=== PATIENT | male | born 1990 | race Caucasian/White ===

== ENCOUNTER 2016-09-17 16:20 | Emergency (ER) | payer BC ==
[2016-09-17 16:40] VITALS: BP 148/67
--- NOTE | 2016-09-17 16:59 | UC ---
HPI Wound/Suture Re-check - HPI Summary HPI Summary: The patient comes in today for: 1. Staple removal from surgical wound of the left forearm: Onset: Fasciotomy done on the 4th of this month. Hawk put in on the 8th with closure. Palliative/provocative: Over working his hand will lead to pain. Quality: No pain at rest. Region: Left forearm. Severity: no pain at rest. Time: Constant. Associated symptoms: Event: He has been living in [facility] for 4 years. He had a heroin overdose and passed out on his left arm. He woke up about 5-6 hours later on his left side. He was on the floor. The left side of his body was numb. He called 911 and went to the hospital. On his way back to the hospital via the ambulance, the sensation came back except for the left forearm. The left forearm was swollen. He had "tests" and diagnosed with left forearm compartment syndrome. He had surgery at that time. He was got a lot of fluid and urinating a lot. He was in the hospital for about 6 days with open wounds for 4 days. And the swelling came down and the wounds were closed 2 days before he left. Sensation in his arm is normal. He does not have a PCP in this area and is not set up with physical therapy. He is planning to be here until further notice. He has a contact with . He does not yet have sponsor. He has not started any meetings. He wants to cut back on his pain medications. He has no PCP at this time. * - History Of Current Complaint Chief Complaint: KAUSHIKkin Stated Complaint: STAPLE REMOVAL LEFT ARM Time Seen by Provider: 09/17/16 16:35 Hx Obtained From: Patient, Family/Customer Service Coordinator - Allergies/Home Medications Allergies/Adverse Reactions: Allergies Allergy/AdvReac Type Severity Reaction Status Date / Time Amoxicillin Allergy Hives Verified 09/17/16 16:27 Home Medications: Home Medications Acetaminophen [Acetaminophen Extra Stren] 1,000 mg PO Q6H PRN 09/17/16 [History Confirmed 09/17/16] PMH/Surg Hx/FS Hx/Imm Hx Previously Healthy: No - IVDU (heroin) - Surgical History Surgical History: Yes Surgery Procedure, Year, and Place: fasciotomy and closure. - Family History Known Family History: Positive: Diabetes Negative: Hypertension - Social History Occupation: Unemployed Lives: With Family Alcohol Use: None Substance Use Type: Heroin Substance Use Comment - Amount & Last Used: last used on 09/06/16 Smoking Status (MU): Heavy Every Day Tobacco Smoker Type: Cigarettes Amount Used/How Often: 1/2 pack daily Review of Systems Constitutional: Negative Skin: Negative Eyes: Negative ENT: Negative Respiratory: Negative Cardiovascular: Negative Gastrointestinal: Negative Genitourinary: Negative All Other Systems Reviewed And Are Negative: Yes Physical Exam Triage Information Reviewed: Yes Appearance: Well-Appearing, No Pain Distress, Well-Nourished Vital Signs: Initial Vital Signs Temp 98.6 F 09/17/16 16:33 Pulse 82 09/17/16 16:33 Resp 16 09/17/16 16:33 BP 148/67 09/17/16 16:33 Pulse Ox 98 09/17/16 16:33 Vital Signs Reviewed: Yes Eyes: Positive: Conjunctiva Clear. Negative: Discharge ENT: Positive: Hearing grossly normal. Negative: Pharyngeal erythema, Nasal congestion, Nasal drainage, TM bulging, TM dull, TM red, Tonsillar swelling, Tonsillar exudate Dental: Negative: Gross Decay/Caries @, Dental Fracture @ Neck: Positive: Supple, Nontender Respiratory: Positive: Chest non-tender, Lungs clear, No respiratory distress, No accessory muscle use. Negative: Crackles, Wheezing Cardiovascular: Positive: RRR, No Murmur Abdomen Description: Positive: Nontender, No Organomegaly, Soft. Negative: Distended, Guarding Musculoskeletal: Positive: Strength Intact, ROM Intact, No Edema Neurological: Positive: Alert, Muscle Tone Normal Psychological: Positive: Normal Response To Family, Age Appropriate Behavior, Consolable Skin: Positive: Other - He has surgical wounds of the inside and outside of his left forearm. No marked erythema, No drainage.. Negative: rashes, breakdown Course/Dx - Course Course Of Treatment: The patient had his hawk removed--every other one round 1 and round 2. At this point, the wound edges appeared to be solid When removing the last widely-spaced hawk, there was some dehiscence and two hawk were kept in the upper inside forearm. The rest were removed. Steri strips (5 packets) applied with Mastisol. Dressing applied to protect the sites. NO bleeding or discharge. NO marked redness. - Differential Dx - Laceration/Wound Provider Diagnoses: Staple removal of two surgical fasciotiomy sites. Discharge - Discharge Plan Condition: Stable Disposition: HOME Patient Education Materials: Wound Healing and Your Diet (ED), Steristrips (ED) Referrals: Good Álvarez MD [Medical Doctor] - (Please contact Dr. Álvarez's office as soon as you can for a follow-up evaluation and treatment. ) Additional Instructions: He may take the morphine sulfate 15 mg twice a day for one more day--then stop. Switch to hydrocodone/acetaminophen 5/325 mg pills. Taking as following: Days 1-2: take one pill every four hours up to 5 a day as needed for pain. Days 3-4: Take one pill up to 4 times a day as needed for pain. Days 5-6: Take one pill up to 3 times a day as needed for pain. Days 7-8: Take one pill up to twice a day as needed for pain. Days 9-10: Take one pill up to once a day as needed for pain--then stop.
== END 2016-09-17 18:16 | disposition home or self-care (01) ==
LOC: UCCORT 16:20
DX: Z48.89 Encounter for other specified surgical aftercare (principal); Z88.1 Allergy status to other antibiotic agents; F11.90 Opioid use, unspecified, uncomplicated; F17.210 Nicotine dependence, cigarettes, uncomplicated
CPT/HCPCS: 99202; G0463

== ENCOUNTER 2017-12-05 13:16 | Emergency (ER) | payer BC ==
--- NOTE | 2017-12-05 14:31 | UC ---
Skin Complaint HPI - HPI Summary HPI Summary: 26 y/o male presents to the urgent care c/o rash all over her chest, back, B/L arms and B/L legs since yesterday. Pt reports he woke up yesterday w/ itchiness , then he took a shower and he realized he has a generalized rash. 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 Pt states his sheets had a heavy smell of fabric softener and he thinks that was the cause of his rash. He has taking Benadryl PO w/o any improvement. Pt denies throat or chest tightening, SOB, chest pain, abdominal pain, N/V/D, eating outside. Pt is PCN allergic. - History of Current Complaint Chief Complaint: UCRash Time Seen by Provider: 12/05/17 14:28 Stated Complaint: RASH, ALLERGIC REACTION Hx Obtained From: Patient Pain Intensity: 0 - Allergy/Home Medications Allergies/Adverse Reactions: Allergies Allergy/AdvReac Type Severity Reaction Status Date / Time amoxicillin Allergy Hives Verified 12/05/17 14:10 PMH/Surg Hx/FS Hx/Imm Hx - Surgical History Surgical History: Yes Surgery Procedure, Year, and Place: Left Forearm Fasciotomy, 2017, [place] - Family History Known Family History: Positive: Diabetes Negative: Hypertension - Social History Alcohol Use: 3-4 daily Substance Use Type: Marijuana Substance Use Comment - Amount & Last Used: two to three times weekly Smoking Status (MU): Heavy Every Day Tobacco Smoker Type: Cigarettes Amount Used/How Often: 1/2 PPD Length of Time of Smoking/Using Tobacco: Since Age 15 Physical Exam - Summary Physical Exam Summary: Vital Signs Reviewed: Yes General: well developed, well nourished male sitting in the examining table w/o any apparent distress. Eyes: Positive: Conjunctiva Clear - PERRLA, EOMI ENT: Positive: Normal ENT inspection, Hearing grossly normal, Pharynx normal, TMs normal Neck: Positive: Supple, Nontender, No Lymphadenopathy Respiratory: Positive: Chest nontender, Lungs clear, Normal breath sounds Cardiovascular: Positive: RRR, No Murmur, Pulses Normal Abdomen Description: Positive: Nontender, No Organomegaly, Soft. Negative: CVA Tenderness (R), CVA Tenderness (L) Bowel Sounds: Positive: Present Musculoskeletal: Positive: Strength Intact, ROM Intact, No Edema Neurological Exam: Normal Psychological Exam: Normal Skin: Positive: rashes -Positive diffuse discrete erythematous maculopapular eruption w/ scattered hives, in upper chest, back, B/L arms and B/L legs w/ signs of excoriation, non tender to palpation, no swelling observed. Triage Information Reviewed: Yes Vital Signs: Initial Vital Signs Temp 98.3 F 12/05/17 14:07 Pulse 70 12/05/17 14:07 Resp 16 12/05/17 14:07 BP 123/69 12/05/17 14:07 Pulse Ox 100 12/05/17 14:07 Course/Dx - Course Course Of Treatment: 26 y/o male presents to the urgent care c/o rash all over her chest, back, B/L arms and B/L legs since yesterday. Pt reports he woke up yesterday w/ itchiness, then he took a shower and he realized he has a generalized rash. 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 Pt states his sheets had a heavy smell of fabric softener and he thinks that was the cause of his rash. He has taking Benadryl PO w/o any improvement. Pt denies throat or chest tightening, SOB, chest pain, abdominal pain, N/V/D, eating outside. Pt is PCN allergic. Hx obtained. Pt w/ contact dermatitis on examination. Pt Given Methylprednisolone IM inj by nurse. Pt tolerated well IM inj. also given Benadryl PO and Famotidine PO to alelviate symptoms. Pt RX Prednisone PO taper dose, hydrocortisone cream, Benadryl PO to alleviate symptoms. Advised to stop using the fabric softener. D/C instructions explained. Pt understood and agreed w/ plan of care and left the clinic ambulating and hemodynamically stable. - Differential Diagnoses - Skin Complaint Differential Diagnoses: Allergic Reaction, Cellulitis, Contact Dermatitis, Local Allergic Reaction, Urticaria - Diagnoses Provider Diagnoses: 1- Contact dermatitis. 2- Allergic Reaction Discharge - Discharge Plan Condition: Stable Disposition: HOME Prescriptions: diPHENhydraMINE PO* [Benadryl PO 25 MG TAB*] 25 mg PO Q6H PRN #30 tab PRN Reason: pruritus Hydrocortisone 1% CREAM* [Hytone Cream 1%*] 1 applic TOPICAL BID #1 tube predniSONE TAB* [Deltasone 20 MG TAB*] 20 mg PO DAILY #11 tab Patient Education Materials: Contact Dermatitis (ED), Urticaria (ED) Referrals: [facility] [place] [facility] [Outside] - 2 Days Additional Instructions: 1-Please Start taking Prednisone PO taper dose starting tomorrow. first loading dose given today at the clinic. 2- Continue taking Benadryl PO to alleviate itchiness. Apply topical cream as directed. Avoid exposure to the sun. 3-If symptoms do not improve or worsen please f/u with your PCP or Neonatal Nurse Practitioner in 2-3 days for further evaluation and treatment. 4- If symptoms worsen and you develop SOB or difficulty breathing please go immediately to the ER for further management. - Billing Disposition and Condition Condition: STABLE Disposition: Home
[2017-12-05] MEDS ORDERED: methylPREDNISolone 125 MG* 2 ML VIAL IM ONE (14:39)
[2017-12-05] MEDS ORDERED: diPHENhydraMINE PO* 25 MG PO ONE (14:40)
[2017-12-05] MEDS ORDERED: Famotidine TAB* 20 MG PO ONE (14:40)
[2017-12-05 15:40] VITALS: BP 129/81
--- NOTE | 2017-12-06 07:13 | UC ---
Discharge - Sign-Out/Discharge Documenting (check all that apply): Post-Discharge Follow Up All imaging exams completed and their final reports reviewed: No Studies - Discharge Plan Condition: Stable Disposition: HOME Prescriptions: diPHENhydraMINE PO* [Benadryl PO 25 MG TAB*] 25 mg PO Q6H PRN #30 tab PRN Reason: pruritus Famotidine TAB* [Pepcid 20 MG TAB*] 20 mg PO DAILY #30 tab Hydrocortisone 1% CREAM* [Hytone Cream 1%*] 1 applic TOPICAL BID #1 tube predniSONE TAB* [Deltasone 20 MG TAB*] 20 mg PO DAILY #11 tab Patient Education Materials: Contact Dermatitis (ED), Urticaria (ED) Referrals: [facility] [place] [facility] [Outside] - 2 Days Additional Instructions: 1-Please Start taking Prednisone PO taper dose starting tomorrow. first loading dose given today at the clinic. 2- Continue taking Benadryl PO to alleviate itchiness. Apply topical cream as directed. Avoid exposure to the sun. 3-If symptoms do not improve or worsen please f/u with your PCP or Business Ethics Professor in 2-3 days for further evaluation and treatment. 4- If symptoms worsen and you develop SOB or difficulty breathing please go immediately to the ER for further management. - Billing Disposition and Condition Condition: STABLE Disposition: Home
== END 2017-12-05 15:36 | disposition home or self-care (01) ==
LOC: UCCORT 13:16
DX: L25.9 Unspecified contact dermatitis, unspecified cause (principal); T78.49XA Other allergy, initial encounter; X58.XXXA Exposure to other specified factors, initial encounter; F17.210 Nicotine dependence, cigarettes, uncomplicated
CPT/HCPCS: 96372; 99213; A9270-GY; G0463; J2930

== ENCOUNTER 2018-07-15 17:01 | Emergency (ER) | payer BC ==
[2018-07-15] MEDS ORDERED: Famotidine TAB* 20 MG PO ONE (17:40)
[2018-07-15] MEDS ORDERED: Ondansetron ODT TAB* 4 MG PO ONE (17:40)
--- NOTE | 2018-07-15 17:41 | UC ---
GI Bleed HPI - HPI Summary HPI Summary: 27-year-old male comes in with a chief complaint of vomiting blood. This morning he was nauseous and he threw up the states it was not all blood but there was vomit with blood in it. Patient reports 8 days ago he also threw up with some blood in his vomit. He's had 3 other episodes between 8 days ago and 5 days ago. Says been up wake a lot and he does feel fatigued but he does not feel like passing out. He denies any black stools. Does say his stools are darker than usual. He does have some GERD symptoms. About 2 years ago was diagnosed with hepatitis C. He is inquiring about finding a primary care physician as he does not have one at this time. - History Of Current Complaint Chief Complaint: UCGI Stated Complaint: ABD COMPLAINT Time Seen by Provider: 07/15/18 17:20 Pain Intensity: 5 - Allergies/Home medications Allergies/Adverse Reactions: Allergies Allergy/AdvReac Type Severity Reaction Status Date / Time amoxicillin Allergy Hives Verified 12/05/17 14:10 ibuprofen AdvReac Abdominal Verified 07/15/18 17:13 Pain PMH/Surg Hx/FS Hx/Imm Hx Previously Healthy: Yes - Hep C GI/ History: Gastroesophageal Reflux - Surgical History Surgical History: Yes Surgery Procedure, Year, and Place: Left Forearm Fasciotomy, 2017, [place] - Family History Known Family History: Positive: Diabetes Negative: Hypertension - Social History Alcohol Use: Weekly Substance Use Type: Marijuana Substance Use Comment - Amount & Last Used: two to three times weekly Smoking Status (MU): Heavy Every Day Tobacco Smoker Type: Cigarettes Amount Used/How Often: 1/2 PPD Length of Time of Smoking/Using Tobacco: Since Age 15 Review of Systems All Other Systems Reviewed And Are Negative: Yes Constitutional: Positive: Fatigue Skin: Positive: Negative Eyes: Positive: Negative ENT: Positive: Negative Respiratory: Positive: Negative Cardiovascular: Positive: Negative Gastrointestinal: Positive: Other - see hpi Motor: Positive: Negative Neurovascular: Positive: Negative Musculoskeletal: Positive: Negative Neurological: Positive: Negative Psychological: Positive: Negative Is Patient Immunocompromised?: No Physical Exam Triage Information Reviewed: Yes Appearance: Well-Appearing, No Pain Distress, Well-Nourished Vital Signs: Initial Vital Signs Temp 97.1 F 07/15/18 17:14 Pulse 87 07/15/18 17:14 Resp 12 07/15/18 17:14 BP 143/85 07/15/18 17:14 Pulse Ox 99 07/15/18 17:14 Vital Signs Reviewed: Yes Eye Exam: Normal Eyes: Positive: Conjunctiva Clear, Other: - no scleral icterus ENT: Positive: Pharynx normal Neck: Positive: Supple Respiratory: Positive: Lungs clear, Normal breath sounds, No respiratory distress Cardiovascular: Positive: RRR Abdomen Description: Positive: Nontender, Soft. Negative: Distended, Guarding Bowel Sounds: Positive: Present Musculoskeletal Exam: Normal Musculoskeletal: Positive: Strength Intact, ROM Intact Neurological Exam: Normal Neurological: Positive: Alert, Muscle Tone Normal Psychological Exam: Normal Psychological: Positive: Age Appropriate Behavior Skin Exam: Normal Bleed Course/Dx - Course Course Of Treatment: I discussed the patient's orthostatic vital signs. His heart rate did go up more than 30 beats from laying to standing. Systolic blood pressure went down 10 points from laying to standing. Patient denies feeling lightheaded during this. We discussed getting blood work to include CBC CMP and coags and lipase. We also discussed patient being seen by gastrologist for the vomiting blood and also for the hepatitis. Patient let me know that he has a new primary care physician appointment scheduled for July 18, 2018. Today the patient declined getting blood work drawn. States he will do it through his new primary care or by another avenue. We discussed care and evaluation in the emergency department for his GI bleed. At this time the overall plan is the patient to follow-up with his new primary care physician on July 18, 2018 as scheduled however if he feels worse he vomits more blood sees blood in his stool is any fevers pain feels lightheaded he will go directly to the emergency department for further evaluation and care. - Differential Dx/Diagnosis Provider Diagnosis: Hematemesis Discharge - Sign-Out/Discharge Documenting (check all that apply): Patient Departure All imaging exams completed and their final reports reviewed: No Studies - Discharge Plan Condition: Stable Disposition: HOME Prescriptions: Omeprazole 20 mg PO BID #30 capsule. Ondansetron ODT TAB* [Zofran 4 MG Odt TAB*] 4 mg PO Q6H PRN #15 tab.odt PRN Reason: Nausea Patient Education Materials: Gastrointestinal Bleeding (ED), Hematemesis (ED) Referrals: [facility] [Outside] [facility] [place] [facility] [Outside] Juan Pablo Valenzuela DO [Doctor of Osteopathy] - Additional Instructions: FOLLOW UP WITH GASTROENTEROLOGY, DR VALENZUELA, OR [facility]. FOLLOW UP WITH YOUR NEW PRIMARY CARE DOCTOR SCHEDULED ON July. I RECOMMEND BLOOD WORK TO INCLUDE; CBC, CMP, PT/INR, LIPASE. GO TO THE EMERGENCY DEPARTMENT FOR WORSENING OF YOUR CONDITION; BLOOD IN YOUR VOMIT OR STOOL, PAIN, YOU FEEL ILL, YOU FEEL LIKE PASSING OUT, YOUR SKIN OR EYES TURN YELLOW (JAUNDICE) OR QUESTIONS OR CONCERNS. - Billing Disposition and Condition Condition: STABLE Disposition: Home
[2018-07-15 17:46] VITALS: BP 139/79
== END 2018-07-15 18:16 | disposition home or self-care (01) ==
LOC: UCCORT 17:01
DX: K92.0 Hematemesis (principal); F17.210 Nicotine dependence, cigarettes, uncomplicated; B19.20 Unspecified viral hepatitis C without hepatic coma; K21.9 Gastro-esophageal reflux disease without esophagitis; Z88.6 Allergy status to analgesic agent; Z88.0 Allergy status to penicillin
CPT/HCPCS: 99212; A9270-GY; G0463